=== PATIENT | female | born 1955 | race African-American/Black ===

== ENCOUNTER 2016-05-25 00:46 | Inpatient (IN) | payer OTHER ==
[2016-05-25] MEDS ORDERED: Albuterol Nebulizer 2.5mg/3mL IH PRN (01:22)
[2016-05-25] MEDS ORDERED: Maalox 30 mL Cup PO PRN (01:23)
[2016-05-25 01:27] VITALS: BP 131/68
[2016-05-25] MEDS ORDERED: Multivitamin Inj 10 ML, Thiamine HCL 100 MG, Magnesium Sulfate 2 GM, Folic Acid 1 MG in... IV SCH (01:30)
[2016-05-25] MEDS: D5-0.9%NS 1,000 ML IV SCH (02:01)
[2016-05-25] MEDS ORDERED: Thiamine 100 mg/mL 2mL Vial ONE (03:23)
[2016-05-25] MEDS ORDERED: Multivitamin Inj 10 mL Vial IV ONE (03:23)
[2016-05-25] MEDS ORDERED: MAG SULFATE IV ONE (03:25)
[2016-05-25] MEDS ORDERED: Magnesium Sulfate 1 gm/2 mL 2mL Vial IV ONE (03:26)
[2016-05-25 06:15] LABS: HEMATOCRIT 33.1 % (35.0-45.0); HEMOGLOBIN 11.6 gm/dL (11.7-15.5); MEAN CELL VOLUME 89.5 fl (81-100); MEAN CORPUSCULAR HEMOGLOBIN 31.2 pg (27.0-31.0); MEAN CORPUSCULAR HGB CONC 34.9 pg (28.0-36.0); MEAN PLATELET VOLUME 9.1 fl; PLATELET COUNT 129 Th/cmm (150-400); RED CELL DISTRIBUTION WIDTH 17.2 % (11.5-20.0); WHITE BLOOD COUNT 5.1 Th/cmm (4.8-10.8)
[2016-05-25 06:23] LABS: INR 1.07 (0.5-1.4); PROTHROMBIN TIME (TEST) 11.1 SECONDS (9.5-11.5)
[2016-05-25 06:33] LABS: ALB/GLOB RATIO 0.9 (1.0-1.8); ALKALINE PHOSPHATASE 125 U/L (34-104); ANION GAP 9.3 (7.0-16.0); BILIRUBIN,TOTAL 1.1 mg/dL (0.3-1.0); BUN - UREA NITROGEN 9 mg/dL (7-25); CALCIUM SERUM 8.8 mg/dL (8.6-10.3); CHLORIDE 102 mEq/L (98-107); CREATININE - SERUM 0.9 mg/dL (0.6-1.2); GLUCOSE 103 mg/dL (70-105); MAGNESIUM 1.9 mg/dL (1.9-2.7); POTASSIUM SERUM 3.3 mEq/L (3.5-5.1); SGOT 73 U/L (13-39); SGPT/ALT 46 U/L (7-52); SODIUM SERUM 136 mEq/L (136-145)
[2016-05-25 08:00] LABS: TSH 2.26 uIU/ml (0.34-5.60)
[2016-05-25 09:02] LABS: EOSINOPHIL 3 % (0-5); NEUTROPHILS 40 % (40-80); TOTAL CELLS COUNTED 100
[2016-05-25 09:03] LABS: PLATELET ESTIMATE DECREASED PLATELETS (NORMAL); PLATELET MORPHOLOGY GIANT PLATELETS SEEN (NORMAL)
[2016-05-25] MEDS: Pantoprazole 40 mg EC Tab PO SCH ×2 (09:39→17:53)
[2016-05-25] MEDS ORDERED: Potassium Chloride 20 mEq ER Tab PO ONE (14:38)
--- NOTE | 2016-05-26 04:39 | Consultation ---
The patient was seen, chart reviewed, and discussed with staff. HISTORY OF PRESENT ILLNESS: The patient is a 60-year-old female with a history of schizoaffective disorder and alcohol dependency, currently admitted on medical floor, has been drinking heavily and she is on Librium for detoxification. The patient said she is comfortable, reports occasionally hearing voices, said trazodone works for her in terms of sleeping well. Also, she is on Abilify and she said she is depressed and anxious at times, but she has no suicidal thoughts. PAST PSYCHIATRIC HISTORY: Multiple psychiatric hospitalizations and chronic history of mental illness. PAST MEDICAL HISTORY: As per H and P. PSYCHOSOCIAL HISTORY: The patient said she lives in [place] with her sister. The patient admits to heavy alcohol use. The patient wants to stop after the detoxification is done. MENTAL STATUS EXAMINATION: The patient is cooperative. Her speech was fluent, not pressured, but slightly fast. Affect is labile, anxious, somewhat depressed. The patient reports occasional auditory hallucinations. The patient is oriented to time, place, and person. No suicidal thoughts. ASSESSMENT: Bipolar disorder versus schizoaffective disorder, bipolar type, and alcohol dependence. PLAN: At this time, we would recommend continuation of medical supportive measures. We will continue current Librium dose 25 mg p.o. t.i.d., which appears to be sufficient. We will continue Abilify and trazodone, consider increasing dose of Abilify. We will monitor closely. Thank you for the consultation. JOB# [id number]
[2016-05-26] MEDS: Pantoprazole 40 mg EC Tab PO SCH ×2 (10:05→17:21)
[2016-05-26 14:20] LABS: FOLIC ACID 13.6 ng/mL (>3.0)
--- NOTE | 2016-05-26 15:21 | Internal Medicine Prog Note ---
Internal Medicine Subjective - Subjective Patient seen and examined:: with staff, chart reviewed Patient is:: awake, verbal, interactive Patient Complaints of:: congestion Per staff patient is:: no episodes of fall, poor oral intake, noncompliant Internal Medicine Objective - Results Result Diagrams: 05/25/16 05:56 05/25/16 05:56 Recent Labs: Laboratory Last Values WBC 5.1 Th/cmm (4.8-10.8) 05/25/16 05:56 RBC 3.70 Mil/cmm (3.80-5.10) L 05/25/16 05:56 Hgb 11.6 gm/dL (11.7-15.5) L 05/25/16 05:56 Hct 33.1 % (35.0-45.0) L 05/25/16 05:56 MCV 89.5 fl (81-100) 05/25/16 05:56 MCH 31.2 pg (27.0-31.0) H 05/25/16 05:56 MCHC Differential 34.9 pg (28.0-36.0) 05/25/16 05:56 RDW 17.2 % (11.5-20.0) 05/25/16 05:56 Plt Count 129 Th/cmm (150-400) L 05/25/16 05:56 MPV 9.1 fl 05/25/16 05:56 Neutrophils (Manual) 40 % (40-80) 05/25/16 05:56 Lymphocytes 47 % (20-50) 05/25/16 05:56 Monocytes 7 % (2-10) 05/25/16 05:56 Eosinophils 3 % (0-5) 05/25/16 05:56 Nucleated RBCs 1.0 % (0-0) H 05/25/16 05:56 Atypical Lymphocytes 3 % 05/25/16 05:56 Platelet Estimate DECREASED PLATELETS (NORMAL) 05/25/16 05:56 Platelet Morphology GIANT PLATELETS SEEN (NORMAL) 05/25/16 05:56 RBC Morph Micro Appear NORMAL (NORMAL) 05/25/16 05:56 PT 11.1 SECONDS (9.5-11.5) 05/25/16 05:56 INR 1.07 (0.5-1.4) 05/25/16 05:56 PTT (Actin FS) 24.1 SECONDS (26.0-38.0) L 05/25/16 05:56 Sodium 136 mEq/L (136-145) 05/25/16 05:56 Potassium 3.3 mEq/L (3.5-5.1) L 05/25/16 05:56 Chloride 102 mEq/L (98-107) 05/25/16 05:56 Carbon Dioxide 28.0 mEq/L (21.0-31.0) 05/25/16 05:56 Anion Gap 9.3 (7.0-16.0) 05/25/16 05:56 BUN 9 mg/dL (7-25) 05/25/16 05:56 Creatinine 0.9 mg/dL (0.6-1.2) 05/25/16 05:56 Est GFR ( Amer) > 60.0 ml/min (>90) 05/25/16 05:56 Est GFR (Non-Af Amer) > 60.0 ml/min 05/25/16 05:56 BUN/Creatinine Ratio 10.0 05/25/16 05:56 Glucose 103 mg/dL (70-105) 05/25/16 05:56 Calcium 8.8 mg/dL (8.6-10.3) 05/25/16 05:56 Magnesium 1.9 mg/dL (1.9-2.7) 05/25/16 05:56 Total Bilirubin 1.1 mg/dL (0.3-1.0) H 05/25/16 05:56 AST 73 U/L (13-39) H 05/25/16 05:56 ALT 46 U/L (7-52) 05/25/16 05:56 Alkaline Phosphatase 125 U/L (34-104) H 05/25/16 05:56 Ammonia 48 umol/L (16-53) 05/25/16 05:56 B-Natriuretic Peptide 28.9 pg/mL (5.0-100.0) 05/25/16 05:56 Total Protein 6.8 gm/dL (6.0-8.3) 05/25/16 05:56 Albumin 3.2 gm/dL (3.7-5.3) L 05/25/16 05:56 Globulin 3.6 gm/dL 05/25/16 05:56 Albumin/Globulin Ratio 0.9 (1.0-1.8) L 05/25/16 05:56 Vitamin B12 1175 pg/mL (211-946) H 05/25/16 05:56 Folic Acid 13.6 ng/mL (>3.0) 05/25/16 05:56 TSH 2.26 uIU/ml (0.34-5.60) 05/25/16 05:56 - Physical Exam Vitals and I&O: Vital Signs Temp 98.3 F 05/26/16 05:00 Pulse 74 05/26/16 05:00 Resp 18 05/26/16 05:00 BP 117/62 05/26/16 05:00 Pulse Ox 97 05/26/16 05:00 Intake & Output 05/25/16 05/26/16 05/26/16 18:59 06:59 18:59 Intake Total 240 Balance 240 Intake: Oral 240 Active Medications: Current Medications Acetaminophen (Tylenol) 650 mg PO Q4HR PRN PRN Reason: Pain or Fever >101 Stop: 07/24/16 01:22 Last Admin: 05/26/16 06:26 Dose: 650 mg Al Hydrox/Mg Hydrox/Simethicone (Maalox) 30 ml PO Q6HR PRN PRN Reason: Constipation Stop: 07/24/16 01:22 Albuterol Sulfate (Albuterol 2.5mg/3ml Neb Ud) 2.5 mg IH Q2HR PRN PRN Reason: Shortness of Breath or Wheeze Stop: 07/24/16 01:21 Aripiprazole (Abilify) 15 mg PO DAILY GISEL PRN Reason: Protocol Stop: 07/25/16 12:40 Chlordiazepoxide (Librium) 25 mg PO TID GISEL PRN Reason: Protocol Stop: 07/24/16 08:59 Last Admin: 05/26/16 10:05 Dose: 25 mg Dextrose/Sodium Chloride (D5-0.9%Ns) 1,000 mls @ 100 mls/hr IV .Q10H GISEL Stop: 07/24/16 01:29 Last Admin: 05/25/16 02:01 Dose: 100 mls/hr Lorazepam (Ativan) 1 mg IV Q4HR PRN; Protocol PRN Reason: Seizure Stop: 07/24/16 01:21 Meclizine HCl (Antivert) 25 mg PO DAILY PRN PRN Reason: Nausea / Vomiting Stop: 07/24/16 01:21 Last Admin: 05/26/16 10:08 Dose: 25 mg Ondansetron HCl (Zofran) 4 mg IV Q8H PRN PRN Reason: Nausea / Vomiting Stop: 07/24/16 01:22 Pantoprazole Sodium (Protonix) 40 mg PO BID GISEL Stop: 07/24/16 08:59 Last Admin: 05/26/16 10:05 Dose: 40 mg Trazodone HCl (Desyrel) 100 mg PO HS [facility] Stop: 07/25/16 20:59 General: alert HEENT: NC/AT, PERRLA Neck: Supple, No JVD Lungs: congested, rales Cardiovascular: RRR, Normal S1, Normal S2 Abdomen: soft non-tender, globular, positive bowel sound Extremities: excoriation Internal Medicine Assmt/Plan - Assessment Assessment: acute alocohol intox alcohol abuse obesity sad - Plan Plan: cont on iv hydration on librium correct lytes on banana bag mary reeves
[2016-05-26] MEDS: D5-0.9%NS 1,000 ML IV SCH (20:31)
--- NOTE | 2016-05-26 20:58 | Admit Criteria Form ---
Admit Criteria Forms - Admit Criteria Diagnosis: SUBSTANCE ABUSE Clinical Indications for Admission to Inpatient Care (Place 'X' for any and all applicable criteria): Admission is indicated due to ANY ONE of the following(1)(2)(3)(4)(5): [ ]I. Delirium due to alcohol or sedative A withdrawal B ( Also use Delirium Criteria as appropriate)1,6,7 [ ]II. Alcohol or sedative withdrawal with high-risk indicator as manifested by ALL of the following1,3,6,7 [ ]a) Signs of withdrawal as indicated by ANY ONE of the following: [ ]i) Heart rate greater than 100 beats per minute [ ]ii) Nausea or vomiting [ ]iii) Other physical signs of alcohol or sedative withdrawal [ ]iv) Tremor [ ](v) Increased perspiration [ ]b) Elevated risk due to a historical or comorbid factor as indicated by ANY ONE of the following: [ ]i) History of delirium due to alcohol or sedative withdrawal [ ]ii) History of repetitive seizures due to alcohol or sedative withdrawal C [ ]iii) Intrinsic seizure disorder (epilepsy) [ ]iv) [ ]v) Comorbid medical condition that can be dangerously destabilized by alcohol or sedative withdrawal (eg, severe cardiac disease) [ ]III. Severe alcohol or sedative withdrawal that is unmanageable at lower level of care, as manifested by ALL of the following1,3,6,7 [ ]a) Marked signs of withdrawal as indicated by ANY ONE of the following: [ ]i) Heart rate greater than 120 beats per minute [ ]ii) Vomiting [ ]iii) Grossly visible tremor [ ]iv) Profuse perspiration [ ]v) Temperature greater than 38.3 degrees C (101 degrees F) [ ]vi) Other marked physical signs of alcohol or sedative withdrawal [ ]b) Signs of withdrawal which require inpatient treatment as indicated by ANY ONE of the following: [ ]i) Inadequate response to pharmacotherapy in emergency department or other appropriate lower level of care [ ]ii) Lower level of care not feasible or appropriate (eg, unavailable or inappropriate to patient condition or treatment history) [ ]IV. Severely complicated opioid withdrawal that requires [id number] care as manifested by ALL of the following 1,4,7,11 [ ]a) Vomiting or diarrhea due to opioid withdrawal [ ]b) Marked dehydration or electrolyte abnormality that cannot be corrected (to near normal) in an emergency department or other ambulatory setting (eg, serum K<2.5 mEq/L , serum Na <130 mEq/L [X]V. Acute toxicity or instability from substance use requiring inpatient care (eg, altered mental status, respiratory depression) that has had inadequate response to, or is judged inappropriate for, treatment at lower level of care (eg, emergency department, observation care) [ ]. Other inpatient medical or psychiatric care is needed due to risk or comorbidity as indicated by ALL of the following(18): [ ]a) Treatment is needed because of patient risk due to ANY ONE of the following: [ ]i) Medical condition (eg, severe cardiac disease) that requires 24-hour monitoring and treatment due to danger of destabilization by alcohol or sedative withdrawal is present [ ]ii) Imminent danger to self is present due to ANY ONE of the following(19)(20)(21): [ ]1) Imminent risk for recurrence of Suicide attempt or act of serious Harm to self is present as indicated by ALL of the following: [ ]A. There has been very recent Suicide attempt or deliberate act of serious Harm to self. [ ]B. There has not been Sufficient relief of the factors that precipitated the attempt or act. [ ]2) Current plan for suicide or serious Harm to self is present. [ ]3) Command auditory hallucinations for suicide or serious Harm to self are present. [ ]4) Patient has persistent Thoughts of suicide or serious Harm to self that cannot be adequately monitored at lower level of care due to ANY ONE of the following[E]: [ ]A. Insufficient behavioral care is available to meet patient needs (such as required provider or lower level facility is not available). [ ]B. Patient characteristics such as high impulsivity or unreliability are present. [ ]C. Environment does not support recovery. [ ]D. Ready access to lethal means [ ]iii) Imminent danger to others is present due to ANY ONE of the following(19)(23)(24): [ ]1) Imminent risk for recurrence of attempt to seriously Harm another is present as indicated by ALL of the following: [ ]A. There has been very recent attempt to seriously Harm another. [ ]B. There has not been Sufficient relief of factors that precipitated the attempt or act. [ ]2) Current plan for homicide or serious Harm to another is present. [ ]3) Command auditory hallucinations or paranoid delusions contributing to risk for homicide or serious Harm to another are present. [ ]4) Patient has persistent thoughts of homicide or serious Harm to another that cannot be adequately monitored at lower level of care because of ANY ONE of the following[E]: [ ]A. Insufficient behavioral care is available to meet patient needs (such as required provider or lower level facility is not available). [ ]B. High impulsivity or unreliability is present. [ ]C. Environment does not support recovery. [ ]D. Ready access to lethal means [ ]iv) Severe dysfunction in daily living related to substance use disorder as indicated by ANY ONE of the following(33): [ ]a) Extreme deterioration in social interactions (eg , threatening behaviors with little or no provocation) [ ]b) Complete withdrawal from all social interactions [ ]c) Complete neglect of self-care with associated impairment in physical status [ ]d) Extreme disruption in vegetative function (eg, life-sustaining functions such as eating) [ ]e) Complete inability to maintain any appropriate aspect of personal responsibility in any adult roles (eg, occupational, parental ) [ ]v) Other emotional, behavioral, or cognitive symptoms of sufficient severity to preclude ability to engage in recovery without 24-hour monitoring and treatment are present. [ ]vi) Patient requires monitoring due to substance use in combination with medical, psychiatric, or environmental factors that prevent adequate management at lower level of care as indicated by ALL of the following: [ ]1) Significant substance use effects, medical conditions, or psychiatric comorbidities are present as indicated by ANY ONE of the following [ ]A. Substance toxicity or withdrawal requires medical monitoring. [ ]B. Medical comorbidity requires medical monitoring for destabilization due to alcohol or sedative withdrawal. [ ]C. Emotional, behavioral, or cognitive symptoms of sufficient severity to limit or preclude ability to engage in treatment are present. [ ]2) Conditions, barriers, or environmental factors preventing treatment at lower level of care are present as indicated by ANY ONE of the following: [ ]A. Psychiatric comorbidity or opposition to treatment requires 24-hour setting to ensure adherence with medical treatment or adequate motivating interventions. [ ]B. Severe behavioral problems (eg, escalating relapse behaviors, acute psychiatric or substance use crisis, inability to recognize signs and symptoms of relapse ) require 24-hour setting for relapse prevention.[F] [ ]C. Living environment outside of 24-hour setting prevents recovery (eg, abuse, victimization, patient inability to cope). [ ]b Treatment situation and needs are appropriate for inpatient level ( instead of using lower level of care) as indicated by ANY ONE of the following( 25)(26)(27): [ ]i) Patient is unwilling to participate voluntarily and requires treatment (eg, legal commitment) in involuntary unit.(23) [ ]ii) Voluntary treatment at lower level is not feasible (eg, lower level care unavailable or inappropriate for patient condition). [ ]iii) Physical restraint, seclusion, or other involuntary control is needed (eg, actively violent patient for whom treatment in an involuntary unit is deemed necessary in accord with applicable medical and legal criteria).(23) [ ]iv) [id number] medical or nursing care to address symptoms and initiate interventions is required; specific need is identified. Extended stay beyond goal length of stay may be needed for: [ ]a) Onset of delirium [ ]b) Recurrent seizures [ ]c) Persistent severe alcohol or sedative withdrawal [ ]d) Persistent dangerous behavior The original [facility] content created by [employer] has been revised. The portions of the content which have been revised are identified through the use of italic text or in bold, and [facility] has neither reviewed nor approved the modified material. All other unmodified content is copyright [facility]. Please see references footnoted in the original [facility] edition 2016 Admit Criteria Met?: Yes
--- NOTE | 2016-05-27 04:10 | Progress Notes ---
SUBJECTIVE: The patient was seen, discussed with staff, chart is reviewed. Still somewhat anxious, restless, have some withdrawal symptoms. The patient, however, is taking her medications, has no side effects. The patient admits to having occasional hallucinations. ASSESSMENT: The patient's detoxification is under way and so far, she has no complications. PLAN: We will increase Abilify to 50 mg p.o. every day and continue to monitor closely. [facility]# [id number]
[2016-05-27] MEDS: D5-0.9%NS 1,000 ML IV SCH (06:07)
[2016-05-27 08:46] LABS: URINE COLOR YELLOW; URINE GLUCOSE (UA) NEGATIVE (NEGATIVE)
[2016-05-27 08:47] LABS: URINE BILIRUBIN NEGATIVE (NEGATIVE); URINE BLOOD NEGATIVE (NEGATIVE); URINE KETONE NEGATIVE (NEGATIVE); URINE PH 5.5; URINE PROTEIN NEGATIVE (NEGATIVE)
[2016-05-27 08:51] LABS: URINE BACTERIA FEW /hpf (NONE SEEN); URINE EPITHELIAL CELLS FEW /lpf (FEW); URINE RBC 0-2 /hpf (0-5)
[2016-05-27] MEDS: Pantoprazole 40 mg EC Tab PO SCH (10:07)
--- NOTE | 2016-05-27 13:08 | History & Physical ---
CHIEF COMPLAINT: Abdominal pain, alcohol withdrawal. HISTORY OF PRESENT ILLNESS: This is a 60-year-old -Faro[place] female with history of anemia, possible drug abuse, depression, was admitted initially at [facility] secondary to alcohol withdrawal symptoms. The patient was transferred for continued care and treatment. PAST MEDICAL HISTORY: As mentioned in history of present illness. PAST SURGICAL HISTORY: ____ surgery. ALLERGIES: No known drug allergies. MEDICATIONS: The patient is on trazodone and Abilify. FAMILY HISTORY: Noncontributory. SOCIAL HISTORY: Smokes half a pack. Drinks from morning to night, ____ use cocaine, unemployed. The patient is one time, has 10 children. REVIEW OF SYSTEMS: GENERAL: The patient denies ____. The patient complains of not feeling well. HEENT: No blurred vision. NECK: No neck pain. LUNGS: Negative COPD or asthma. The patient is a chronic smoker. HEART: The patient denies hypertension or coronary artery disease. ABDOMEN: The patient with some abdominal pain and discomfort. Previous ____ in the past. NEUROLOGIC: No headache or seizure. The patient with uncontrolled tremors. PHYSICAL EXAMINATION: VITAL SIGNS: Blood pressure 101/59, respirations 20, pulse 80, temperature 97.2. GENERAL: Elderly female, morbidly obese. NECK: Supple. No mass. LUNGS: Equal breath sounds, few rhonchi. HEART: Regular rate and rhythm without appreciable murmurs. ABDOMEN: Soft, nontender, and globular. Positive bowel sounds. EXTREMITIES: Positive excoriation. NEUROLOGIC: Positive resting tremor. PERTINENT LABORATORY FINDINGS: WBC 5.1, hemoglobin 11.6, platelets 129. INR 1.07. Sodium 136, potassium 3.3, BUN 9, creatinine 0.9. Blood sugar 103. AST and ALT 73 and 46 respectively. ____ 125. Albumin 3.2. ASSESSMENT: Altered level of consciousness, acute alcohol intoxication with withdrawal symptoms, anemia, hypokalemia, obesity, osteoarthritis, and depression. PLAN: We will continue the patient on ____ IV hydration. Continue Librium. We will refer the patient to ____. We will continue to monitor the patient closely. JOB# [id number]
[2016-05-27 13:32] LABS: HEMOGLOBIN 12.2 gm/dL (11.7-15.5); MEAN CELL VOLUME 92.2 fl (81-100); MEAN CORPUSCULAR HEMOGLOBIN 30.7 pg (27.0-31.0); MEAN CORPUSCULAR HGB CONC 33.3 pg (28.0-36.0); MEAN PLATELET VOLUME 9.3 fl; RED BLOOD COUNT 3.97 Mil/cmm (3.80-5.10); RED CELL DISTRIBUTION WIDTH 18.7 % (11.5-20.0); WHITE BLOOD COUNT 4.8 Th/cmm (4.8-10.8)
[2016-05-27 13:36] LABS: HEMATOCRIT 36.6 % (35.0-45.0); PLATELET COUNT 167 Th/cmm (150-400)
[2016-05-27 13:58] LABS: NEUTROPHILS 34 % (40-80); PLATELET ESTIMATE ADEQUATE (NORMAL); TOTAL CELLS COUNTED 100
[2016-05-27 13:59] LABS: PLATELET MORPHOLOGY GIANT PLATELETS SEEN (NORMAL)
--- NOTE | 2016-05-27 22:36 | Progress Notes ---
SUBJECTIVE: The patient was seen, states she is feeling better, much less anxious, slept well last night and the patient has no auditory or visual hallucinations. No suicidal thoughts. Her affect is actually brighter. The patient is oriented to time, place and person. ASSESSMENT AND PLAN: The patient has improved and detoxification is completed. The patient is responding favorably to Abilify 15 mg daily. The patient agreed to outpatient followup. The patient was educated on condition and educated on sobriety ____ diagnosis. JOB# [id number]
--- NOTE | 2016-05-27 23:07 | Discharge Summary ---
CHIEF COMPLAINT: Transferred for alcohol intoxication and LOC. FINAL DIAGNOSES: Acute alcohol intoxication, alcohol abuse, history of schizoaffective disorder, anemia, electrolyte abnormalities/hypokalemia, elevated liver function test and moderate protein-calorie malnutrition. HISTORY OF PRESENT ILLNESS: This is a 60-year-old -[place]ym[place] female with a history of alcohol abuse, possible drug abuse and obesity, was admitted initially at [facility] secondary to alcohol intoxication. The patient cleared for discharge to a home. The patient transferred for continued care and treatment. PHYSICAL EXAMINATION: VITAL SIGNS: Blood pressure 126/82, respirations 20, pulse 74 and temperature 96.8. GENERAL: Elderly female, morbidly obese. NECK: Supple. No mass. LUNGS: Equal breath sounds, otherwise clear to auscultation. HEART: Regular rate and rhythm without appreciable murmurs. ABDOMEN: Soft and nontender. EXTREMITIES: No clubbing, cyanosis or edema. NEUROLOGIC: Limited moving 4 extremities. HOSPITAL COURSE: The patient was admitted to medical floor, given ____ and IV hydration, started on Librium. Her psychiatric medications were adjusted. The patient was seen by Dr. Triana for psyche. The patient cleared for discharge. CONDITION ON DISCHARGE: Fair. DISCHARGE INSTRUCTIONS: The patient is to follow with her regular physician. The patient will be discharged to her family in [place]. The patient to return to Emergency Room if her condition worsens. JOB# [id number]
== END 2016-05-27 15:00 | DRG 774 ==
LOC: MSI 00:46
PROVIDERS: ADMIT Internal Medicine; ATTEND Internal Medicine
DX: F10.239 Alcohol dependence with withdrawal, unspecified (principal); F14.90 Cocaine use, unspecified, uncomplicated; E44.0 Moderate protein-calorie malnutrition; F25.0 Schizoaffective disorder, bipolar type; F10.229 Alcohol dependence with intoxication, unspecified; D64.9 Anemia, unspecified; E87.6 Hypokalemia; M19.90 Unspecified osteoarthritis, unspecified site; F32.9 Major depressive disorder, single episode, unspecified; E66.9 Obesity, unspecified; F17.210 Nicotine dependence, cigarettes, uncomplicated; Z68.32 Body mass index [BMI] 32.0-32.9, adult; Z91.14 Patient's other noncompliance with medication regimen
CPT/HCPCS: 36415-UA; 80053-TC; 81001-TC; 82140-TC; 82607-90; 82746-90; 83735-TC; 83880-TC; 84443-TC; 85007-TC; 85027-TC; 85610-TC; 94760; J3411; J3475; J7030; J7042; X6226; X6598; Z7610